=== PATIENT | female | born 1945 | race Caucasian/White ===

== ENCOUNTER 2018-07-15 14:40 | Emergency (ER) | payer MEDICARE, OTHER ==
[2018-07-15] MEDS: IBUPROFEN 200 MG TAB PO (17:45)
[2018-07-15] MEDS: ACETAMINOPHEN 325 MG TAB PO (17:46)
== END 2018-07-15 20:00 | disposition home or self-care (01) ==
LOC: FTE 14:40
DX: S69.91XA Unspecified injury of right wrist, hand and finger(s), initial encounter (principal); E11.9 Type 2 diabetes mellitus without complications; I10 Essential (primary) hypertension; W01.0XXA Fall on same level from slipping, tripping and stumbling without subsequent striking against object, initial encounter; Y92.9 Unspecified place or not applicable; Z79.82 Long term (current) use of aspirin; Z96.653 Presence of artificial knee joint, bilateral
CPT/HCPCS: 73110; 73110-RT; 73130-RT; 99283-25

== ENCOUNTER 2018-12-29 06:17 | Emergency (ER) | payer MEDICARE, OTHER ==
[2018-12-29] MEDS: DEXAMETHASONE 10 MG/ML 1 ML INJ IM (06:47)
[2018-12-29] MEDS: KETOROLAC 60 MG INJ IM (06:47)
== END 2018-12-29 06:36 | disposition home or self-care (01) ==
LOC: FTE 06:17
DX: M54.9 Dorsalgia, unspecified (principal); I10 Essential (primary) hypertension; E11.9 Type 2 diabetes mellitus without complications; Z79.82 Long term (current) use of aspirin; Z96.653 Presence of artificial knee joint, bilateral
CPT/HCPCS: 99284; 99284-25